=== PATIENT | female | born 1980 ===

== ENCOUNTER 2024-02-08 17:56 | Emergency (ER) | payer SELFPAY ==
--- NOTE | 2024-02-08 18:37 | PC.NURSE ---
Pt called x2 for triage, pt not in waiting room or restrooms
== END 2024-02-08 18:00 | disposition left against medical advice (07) ==
DX: Z53.21 Procedure and treatment not carried out due to patient leaving prior to being seen by health care provider (principal)
CPT/HCPCS: 99199